=== PATIENT | female | born 1995 | race Caucasian/White ===

== ENCOUNTER 2017-11-25 13:17 | Emergency (ER) | payer BC, OTHER ==
[2017-11-25] MEDS: AUGMENTIN 875 MG TAB PO (13:33)
[2017-11-25] MEDS: ACETAMINOPH W/CODEINE #3 TAB UD PO (13:34)
== END 2017-11-25 14:25 | disposition home or self-care (01) ==
LOC: M ED 13:17
DX: S31.159A Open bite of abdominal wall, unspecified quadrant without penetration into peritoneal cavity, initial encounter (principal); S61.551A Open bite of right wrist, initial encounter; W54.0XXA Bitten by dog, initial encounter; Y92.099 Unspecified place in other non-institutional residence as the place of occurrence of the external cause; Y93.89 Activity, other specified; Y99.9 Unspecified external cause status
CPT/HCPCS: 99284